=== PATIENT | female | born 2000 | race Two or more races ===

== ENCOUNTER → 2025-02-10 | Outpatient (CLI) | payer MEDICAID ==
--- NOTE | 2025-02-11 13:22 | DVHSR ---
APPROVED REPORT EXAM: Two-dimensional and M-mode echocardiogram with Doppler and color Doppler. DIMENSIONS LVDd5.0 (3.8-5.7cm)LA (2D)3.9 (1.9-4.0cm)Aortic Root2.7 (2.0-3.7cm) LVDs3.6 (2.5-4.0cm)LA (MM) (1.9-4.0cm)Aortic Cusp Exc2.0 (1.5-2.0cm) EF (%) 56.0 (55-70%)Rt. Atrium2.2 (1.9-4.0cm)Asc. Aorta cm IVSd0.8 (0.7-1.1cm)RV (D)1.7 (1.8-2.4cm) PWd0.8 (0.7-1.1cm) Mitral Valve MitralMitral Stenosis E wave0.77m/sMV Mean GR.mmHg A wave0.50m/sMV Peak GR.mmHg E/A ratio1.52D MVAcm2 DECEL [id number] 1/2 [place] Aortic Valve Aortic ValveAortic Stenosis V10.93m/Tammy Mean GR.3mmHg V21.12m/Tammy Peak GR.5mmHg Pulmonic Valve V20.67m/s Tricuspid Valve TR Velocity1.70m/s [id number] LEFT VENTRICLE The Ejection Fraction is 50-55%. ATRIA The left atrial size is normal. The right atrium size is normal. MITRAL VALVE The mitral valve is normal in structure and function. There is no mitral valve regurgitation noted. PULMONIC VALVE The pulmonic valve is not well visualized. TRICUSPID VALVE The tricuspid valve is grossly normal. AORTIC VALVE The aortic valve opens well. No aortic regurgitation is present. GREAT VESSELS The aortic root is normal size. PERICARDIAL EFFUSION There is no pericardial effusion. Conclusion EF 35%
== END | disposition home or self-care (01) ==
LOC: Rad HDHVI 10:08
PROVIDERS: ATTEND Internal Medicine Cardiovascular Disease
DX: R00.2 Palpitations (principal)
CPT/HCPCS: 93306